=== PATIENT | male | born 1945 | race Caucasian/White ===

== ENCOUNTER 2016-09-27 05:59 | Emergency (ER) | payer MEDICARE, BC ==
[2016-09-27 06:16] VITALS: BP 130/75
--- NOTE | 2016-09-27 06:44 | EDM.PDOC ---
ED HPI GENERAL MEDICAL PROBLEM - General Chief Complaint: Bite:Animal, Insect Stated Complaint: BEE STING Time Seen by Provider: 09/27/16 06:56 Source of Information: Reports: Patient History Limitations: Reports: No Limitations - History of Present Illness INITIAL COMMENTS - FREE TEXT/NARRATIVE: pt was stung by a bee 2 days ago and he now has a swollen hand and a slight red streak going up his arm. He now has swelling in the hand which looks like a local reaction. Onset: Today, Other (pt has a red streak ging up the left arm. ) Duration: Hour(s): Location: Reports: Upper Extremity, Left Left Hand Pain Score (Numeric/FACES): 0 - Related Data Allergies Allergy/AdvReac Type Severity Reaction Status Date / Time No Known Allergies Allergy Verified 09/27/16 06:17 Home Meds: Home Meds NK [No Known Home Meds] 09/27/16 [History] Past Medical History Dermatologic History: Reports: Eczema Social & Family History - Tobacco Use Smoking Status *Q: Never Smoker - Caffeine Use Caffeine Use: Reports: Coffee, Soda - Recreational Drug Use Recreational Drug Use: No ED ROS GENERAL - Review of Systems Review Of Systems: See Below Constitutional: Reports: No Symptoms HEENT: Reports: No Symptoms Respiratory: Reports: No Symptoms Cardiovascular: Reports: No Symptoms Endocrine: Reports: No Symptoms GI/Abdominal: Reports: No Symptoms : Reports: No Symptoms ED EXAM, ANIMAL BITE - Physical Exam Exam: See Below Text/Narrative:: pt arrived with a red streak going up the arm. Hehas swelling of the left hand which looks like a local reaction Exam Limited By: No Limitations General Appearance: Alert, Anxious Ears: Normal External Exam Nose: Normal Inspection Throat/Mouth: Normal Inspection Head: Atraumatic Neck: Normal Inspection Respiratory/Chest: No Respiratory Distress Cardiovascular: Regular Rate, Rhythm Course - Vital Signs Last Recorded V/S: Last Vital Signs Temp 35.9 C 09/27/16 06:15 Pulse 50 L 09/27/16 06:15 Resp BP 130/75 09/27/16 06:15 Pulse Ox - Re-Assessments/Exams Free Text/Narrative Re-Assessment/Exam: 09/27/16 07:00 pt has a cellulitis of the left arm and will be placed on keflex. Departure - Departure Time of Disposition: 06:41 Disposition: Home, Self-Care 01 Condition: Fair Clinical Impression: Cellulitis, Bee sting - Discharge Information Instructions: Cellulitis, Adult, [id number] Referrals: Jann Yeh MD [Primary Care Provider] - Forms: ED Department Discharge Care Plan Goals: soak hand in slightly warm water follow with acool pack, benadryl 50mg q6h for swelling and local reactipon. keflex 500mg tid for the next week, rtc if increased problem.
== END 2016-09-27 07:04 | disposition home or self-care (01) ==
LOC: JP.ED 05:59
DX: T63.441A Toxic effect of venom of bees, accidental (unintentional), initial encounter (principal); L03.114 Cellulitis of left upper limb
CPT/HCPCS: 99283

== ENCOUNTER 2021-02-04 06:50 | Day surgery (SDC) | payer MEDICARE ==
[2021-02-04 10:42] VITALS: BP 123/58; PULSE 45
[2021-02-05] MEDS ORDERED: Dextrose 5%-Lactated Ringers 1,000 ML IV SCH (08:00)
--- NOTE | 2021-02-05 19:41 | OR ---
DATE OF PROCEDURE: 02/04/2021 SURGEON: Serjio Newell MD PREOPERATIVE DIAGNOSIS: History of colon polyps. POSTOPERATIVE DIAGNOSIS: History of colon polyps with no recurrent polyps seen on today's examination. OPERATIVE PROCEDURE: Flexible colonoscopy. ANESTHESIA: IV sedation. INDICATION FOR PROCEDURE: The patient is status post flexible colonoscopy in the past which showed adenomatous polyps. He presents now for followup colonoscopy with biopsies and polypectomy as indicated. Potential risks including bleeding and perforation were discussed, and the patient wishes to proceed. DETAILS OF PROCEDURE: The patient was taken to the operating room and placed in a left lateral decubitus position. IV sedation was administered. After which, the initial digital rectal exam was performed and was unremarkable. Colonoscope was passed into the rectum with retroflexion revealing uncomplicated hemorrhoidal columns. Scope was eventually passed to the level of the cecum. The prep was fairly good. There was some liquid stool that would have obscured very small polyps on some surfaces of the colon. However, there was no pathology seen. There were no diverticula. No areas of colitis. No polyps or other signs of neoplasia identified. Scope was then withdrawn and the procedure then concluded. The patient was taken to the recovery room in satisfactory condition. Recommendation would be to repeat the colonoscopy in five years, given the personal history of the colon polyps. Serjio Newell MD /[id number]
== END 2021-02-04 11:00 | disposition home or self-care (01) ==
LOC: JP.SDS 06:50
PROVIDERS: ATTEND Surgery
DX: Z12.11 Encounter for screening for malignant neoplasm of colon (principal); K64.9 Unspecified hemorrhoids; N40.0 Benign prostatic hyperplasia without lower urinary tract symptoms; D69.6 Thrombocytopenia, unspecified; Z86.010 Personal history of colon polyps

== ENCOUNTER 2024-07-27 16:50 | Emergency (ER) | payer MEDICARE ==
[2024-07-27] MEDS: Aspirin 81 MG Tab.Chew PO ONE (17:09)
[2024-07-27 17:12] LABS: BASOPHILS PERCENT AUTO 0.6 % (0.1-1.3); EOSINOPHILS ABSOLUTE AUTO 0.09 K/uL (0.00-0.40); EOSINOPHILS PERCENT AUTO 2.7 % (0.0-5.4); HEMATOCRIT 42.2 % (38.4-49.7); HEMOGLOBIN 14.8 g/dL (12.9-16.9); IMMATURE GRAN PERCENT AUTO 0.3 % (0.0-0.7); LYMPHOCYTES PERCENT AUTO 29.9 % (11.4-47.7); MEAN CORPUSCULAR HEMOGLOBIN 33.3 pg (31.6-35.5); MEAN CORPUSCULAR HGB CONC 35.1 g/dL (31.6-35.5); MONOCYTES ABSOLUTE AUTO 0.45 K/uL (0.20-0.90); MONOCYTES PERCENT AUTO 13.4 % (3.3-12.6); NEUTROPHILS ABSOLUTE AUTO 1.78 K/uL (1.0-7.6); NEUTROPHILS PERCENT AUTO 53.1 % (40.0-78.1); PLATELET COUNT,PLT 135 K/uL (130-375); RED BLOOD CELL COUNT 4.44 M/uL (4.14-5.76); WHITE BLOOD CELL COUNT,WBC 3.4 K/uL (3.2-11.0)
[2024-07-27 17:13] LABS: BASOPHILS ABSOLUTE AUTO 0.02 K/uL (0.00-0.10); IMMATURE GRAN ABSOLUTE AUTO 0.01 K/uL (0.00-0.23)
[2024-07-27 17:35] LABS: ANION GAP 6.8 mmol/L (5.0-14.0); CALCIUM 9.9 mg/dL (8.5-10.1); EST CRCL DRUG DOSING (CG) 67.47 mL/min; POTASSIUM,K 4.3 mmol/L (3.6-5.2); TROPONIN I HIGH SENSITIVITY 18.2 pg/mL (<=60.3)
[2024-07-27 19:27] VITALS: PULSE 50
[2024-07-27 20:33] VITALS: BP 124/81
== END 2024-07-27 20:25 | disposition home or self-care (01) ==
LOC: JP.ED 16:50
DX: R07.9 Chest pain, unspecified (principal); Z91.048 Other nonmedicinal substance allergy status; Z88.8 Allergy status to other drugs, medicaments and biological substances; Z79.899 Other long term (current) drug therapy
CPT/HCPCS: 36415; 71046; 71046-26; 80048; 84484; 85025; 93005; 99285; A9270-GY

== ENCOUNTER 2024-09-10 09:21 | Emergency (ER) | payer MEDICARE ==
[2024-09-10 09:47] VITALS: BP 145/85; PULSE 55
[2024-09-10 09:56] LABS: APPEARANCE,URINE CLEAR (CLEAR); GLUCOSE,URINE NEGATIVE (NEGATIVE); OCCULT BLOOD,URINE NEGATIVE (NEGATIVE)
[2024-09-10 10:01] LABS: EPITHELIAL CELLS,URINE NOT SEEN
== END 2024-09-10 10:44 | disposition home or self-care (01) ==
LOC: JP.ED 09:21
DX: R39.11 Hesitancy of micturition (principal); Z79.899 Other long term (current) drug therapy; Z88.6 Allergy status to analgesic agent; Z91.048 Other nonmedicinal substance allergy status
CPT/HCPCS: 51798; 81001; 99283-25

== ENCOUNTER 2024-12-06 16:37 | Emergency (ER) | payer MEDICARE ==
[2024-12-06 16:56] VITALS: BP 108/70; PULSE 73
[2024-12-06 17:24] LABS: BASOPHILS ABSOLUTE AUTO 0.01 K/uL (0.00-0.10); BASOPHILS PERCENT AUTO 0.2 % (0.1-1.3); EOSINOPHILS ABSOLUTE AUTO 0.08 K/uL (0.00-0.40); EOSINOPHILS PERCENT AUTO 1.8 % (0.0-5.4); IMMATURE GRAN ABSOLUTE AUTO 0.01 K/uL (0.00-0.23); IMMATURE GRAN PERCENT AUTO 0.2 % (0.0-0.7); LYMPHOCYTES ABSOLUTE AUTO 0.32 K/uL (0.8-3.3); LYMPHOCYTES PERCENT AUTO 7.1 % (11.4-47.7); MONOCYTES ABSOLUTE AUTO 0.53 K/uL (0.20-0.90); MONOCYTES PERCENT AUTO 11.7 % (3.3-12.6); NEUTROPHILS ABSOLUTE AUTO 3.57 K/uL (1.0-7.6); NEUTROPHILS PERCENT AUTO 79.0 % (40.0-78.1); PLATELET COUNT,PLT 85 K/uL (130-375); RED BLOOD CELL COUNT 4.44 M/uL (4.14-5.76); WHITE BLOOD CELL COUNT,WBC 4.5 K/uL (3.2-11.0)
[2024-12-06 17:42] LABS: INR 1.0
[2024-12-06 17:53] LABS: A/G RATIO 1.2 (1.2-2.2); ALANINE AMINOTRANSFERASE,ALT 41 U/L (12-78); ASPARTATE AMNIOTRANSFERASE,AST 25 U/L (15-37); BILIRUBIN TOTAL 0.7 mg/dL (0.2-1.0); BLOOD UREA NITROGEN,BUN 23 mg/dL (7-18); CARBON DIOXIDE,CO2 27 mmol/L (21-32); CHLORIDE,CL 102 mmol/L (100-108); CREATININE 1.2 mg/dL (0.8-1.3); EST CRCL DRUG DOSING (CG) 55.69 mL/min; ESTIMATED GFR 62 mL/min (>60); GLUCOSE RANDOM 142 mg/dL (74-106); POTASSIUM,K 4.1 mmol/L (3.6-5.2); PRO B-TYPE NATRIUR PEPT,BNPPRO 162 pg/mL (5-450); PROTEIN TOTAL,TP 5.5 g/dL (6.4-8.2); SODIUM,NA 137 mmol/L (140-148); TROPONIN I HIGH SENSITIVITY 17.8 pg/mL (<=60.3)
== END 2024-12-06 20:09 | disposition home or self-care (01) ==
LOC: JP.ED 16:37
DX: R07.89 Other chest pain (principal); Z79.899 Other long term (current) drug therapy; Z91.048 Other nonmedicinal substance allergy status; Z88.6 Allergy status to analgesic agent
CPT/HCPCS: 36415; 71045; 71045-26; 80053; 83880; 84484; 85025; 85610; 93005; 99283; 99285